=== PATIENT | male | born 1960 | race Caucasian/White ===

== ENCOUNTER 2024-05-25 06:06 | Day surgery (SDC) | payer OTHER ==
[~2024-05-25] VITALS: Ht 172.7 cm; Wt 64.0 kg
[2024-05-25] VITALS (239 sets, daily range): BP systolic 79–173; BP diastolic 44–118
--- NOTE | 2024-05-25 07:00 | NUR ---
Arrival & Pre-treatment Patient arrived to the [facility] suite, identification and demographics confirmed. Patient to room 8, AAO, ambulatory, vitals obtained, ID/allergy/fall bands placed, changed into hospital gown, MELI hose, and non-slip socks. Procedure and timeline explained for treatment and discharge. All questions answered and the patient presents no concerns at this time.
[2024-05-25] MEDS ORDERED: diazePAM 5 MG/TAB PO PRN ×2 (07:30→08:30)
[2024-05-25] MEDS ORDERED: LACTATED RINGER'S 1,000 ML IV PRN ×3 (07:30→19:00)
[2024-05-25] MEDS ORDERED: PANTOPRAZOLE SODIUM Sesquihydr 40 MG/TAB PO PRN (07:30)
[2024-05-25] MEDS ORDERED: CYANOCOBALAMIN 500 MCG/TAB ( B12) PO PRN (07:30)
[2024-05-25] MEDS ORDERED: FAMOTIDINE 20 MG/TAB PO PRN (07:30)
[2024-05-25] MEDS ORDERED: cloNIDine HCL 0.1 MG/TAB PO PRN (07:30)
[2024-05-25] MEDS ORDERED: SCOPOLAMINE 1.5 MG DIS TD PRN (07:30)
[2024-05-25] MEDS ORDERED: ALBUTEROL SULFATE 2.5 MG VIAL IN PRN (07:30)
--- NOTE | 2024-05-25 07:45 | NUR ---
Dr. Fuentes telephoned with patient intake information including usage, dose, last dose/time taken and initial vital signs. Patient history and allergies reviewed with MD. Orders received for 10 mg PO Valium and 0.1 mg PO Clonidine now. Will reassess per protocol in 1.5 hours and update MD with assessment and vitals. Patient medicated per MD orders. In addition to Clonidine and Valium, patient received 1000 mcg B12 PO, 20 mg Pepcid PO, and Scopolamine TD patch. Medication indication and education provided prior to administration
[2024-05-25] MEDS ORDERED: ASCORBIC ACID 4,000 MG in SODIUM CHLORIDE 0.9% 1,000 ML IV SCH (08:00)
[2024-05-25 08:38] LABS: BASO% 0.4 % (0-3); EOS% 2.4 % (0-8); HEMATOCRIT 46.6 % (39.0-50.0); HEMOGLOBIN 15.2 g/dl (14.0-18.0); IMMATURE GRANULOCYTES 0.4 % (0.0-5.0); LYMPH% 23.4 % (15-41); MEAN CELL VOLUME 97.5 fL CALC (80.0-100.0); MEAN CORPUSCULAR HGB 31.8 pG CALC (26.0-32.0); MEAN CORPUSCULAR HGB CONC 32.6 g/dL CAL (32.0-36.0); MONO% 7.5 % (2-13); NEUT# 4.94 thou/uL (1.82-7.42); NEUT% 65.9 % (42-76); RED BLOOD COUNT 4.78 mill/uL (4.70-6.10); RED CELL DISTRI WIDTH 13.4 % (11.5-15.5)
[2024-05-25] MEDS ORDERED: LIDOCAINE HCL 1% (10MG/ML) 100 MG/10 ML MDV IV PRN (09:00)
[2024-05-25] MEDS ORDERED: cloNIDine HYDROCHLORIDE 100 MCG/ML 10 ML INJ IV PRN (09:00)
[2024-05-25] MEDS ORDERED: DiphenhydrAMINE HCL 50 MG/ML SDV IV PRN (09:00)
[2024-05-25] MEDS ORDERED: MIDAZOLAM HCL 2 MG/2 ML VIAL IV PRN (09:00)
[2024-05-25] MEDS ORDERED: SUCCINYLCHOLINE CHLORIDE 20 MG/ML 10ML VIAL IV PRN (09:00)
[2024-05-25] MEDS ORDERED: OCTREOTIDE ACETATE 100 MCG/VIAL SDV SC PRN (09:00)
[2024-05-25] MEDS ORDERED: diazePAM 5 MG/TAB VT PRN (09:00)
[2024-05-25] MEDS ORDERED: NALTREXONE HCL 50 MG/TAB VT PRN (09:00)
[2024-05-25] MEDS ORDERED: DEXAMETHASONE SODIUM PHOSPHATE PF 10 MG/ML SDV IV PRN ×2 (09:00→19:00)
[2024-05-25] MEDS ORDERED: THIAMINE HCL 100 MG/ML 2ML VIAL IV PRN (09:00)
[2024-05-25] MEDS ORDERED: ONDANSETRON HCl 4 MG/2 ML SDV IV PRN ×3 (09:00→19:00)
[2024-05-25] MEDS ORDERED: STERILE WATER FOR IRRIGATION 1,000 ML BTL IR PRN (09:00)
[2024-05-25] MEDS ORDERED: cloNIDine HCL 0.1 MG/TAB VT PRN (09:00)
[2024-05-25] MEDS ORDERED: ROCURONIUM BROMIDE 10 MG/ML 5ML VIAL IV PRN (09:00)
[2024-05-25] MEDS ORDERED: LIDOCAINE HCL 1% (10MG/ML) 100 MG/10 ML MDV VT PRN ×2 (09:00)
[2024-05-25] MEDS ORDERED: MAGNESIUM SULFATE HEPTAHYDRATE 100 ML IV PRN (09:00)
[2024-05-25] MEDS ORDERED: PROPOFOL 10 MG/ML 100ML VIAL IV PRN (09:00)
[2024-05-25] MEDS ORDERED: PROPOFOL 100 ML IV PRN (09:00)
[2024-05-25] MEDS ORDERED: TESTOST CYP200 MG/ML IM (09:24)
[2024-05-25 09:43] LABS: ALBUMIN 3.9 g/dL (3.2-5.0); BILIRUBIN, TOTAL 0.6 mg/dL (0.2-1.3); CREATININE 0.9 mg/dL (0.7-1.3); POTASSIUM 4.2 mmol/l (3.5-5.1); TOTAL PROTEIN 6.5 g/dL (6.3-8.2)
--- NOTE | 2024-05-25 09:47 | NUR ---
Patient resting comfortably in bed. Easily aroused, maintains focus, and drifts back to sleep. No signs of active withdrawal or distress noted at this time. Continuous SPO2, rhythm, and respiratory monitoring initiated. IVF @ 250 mL/HR, room air, VSS.
[2024-05-25] MEDS ORDERED: POTASSIUM CHLORIDE 10 MEQ/50 ML BAG IV PRN (11:05)
--- NOTE | 2024-05-25 11:05 | NUR ---
Induction Note Patient to [facility] procedure room. Time out performed at 1105. Patient placed on monitors, Brissa hugger, bilateral wrist restraints applied for ET tube protection. Versed 5mg given IV push at 1140. Tourniquet applied to RIGHT arm Lidocaine 100mg given at 1142 IV push followed by Rocoronium 10mg at 1143 IV push and held for 90 seconds. Propofol bolus of 120mg given at 1145 IV push. Succinylcholine 80mg given IV push at 1146. Smooth intubation with 7.5 ETT. Positive CO2. Positive Auscultation for air exchange. Patient placed on ventilator for spontaneous ventilation. Placed on Propofol IV drip at 1147. OG inserted. Positive air on auscultation. Positive gastric content. Stomach washed at this time.
--- NOTE | 2024-05-25 12:00 | NUR ---
OG close note Stomach washed at this time. Naltrexone 50 mg with Clonidine 0.3 mg via OG tube. OG will be clamped for 45 minutes.
--- NOTE | 2024-05-25 12:45 | NUR ---
OG open note OG open at this time. Gastric content draining into drainage bag. OG to drain for 45 minutes. Propofol will be titrated down based on patient.
--- NOTE | 2024-05-25 13:30 | NUR ---
OG close note Stomach washed at this time. Naltrexone 50 mg with Clonidine 0.2 mg via OG tube. OG will be clamped for 45 minutes.
--- NOTE | 2024-05-25 15:00 | NUR ---
OG close note Stomach washed at this time. Naltrexone 50 mg with Clonidine 0.1 mg via OG tube. OG will be clamped for 45 minutes.
--- NOTE | 2024-05-25 16:30 | NUR ---
WAITING TIME NO CLOSE. SPOKE WITH DR. GARCIA AND NO ADDITIONAL MEDICATIONS ORDERED. PATIENT NEEDS MORE TIME.
[2024-05-25] MEDS ORDERED: CLONIDINE0.1 MG PO (16:52)
[2024-05-25] MEDS ORDERED: NALTREXONE50 MG PO (16:52)
[2024-05-25] MEDS ORDERED: KLONOPIN2 MG PO (16:52)
--- NOTE | 2024-05-25 17:15 | NUR ---
OG close note Stomach washed at this time. Naltrexone 12.5 mg with Clonidine 0.1 mg via OG tube. OG will be clamped for 30 minutes.
--- NOTE | 2024-05-25 17:45 | NUR ---
OG open note OG open at this time. Gastric content draining into drainage bag. OG to drain. Propofol will be titrated down based on patient.
--- NOTE | 2024-05-25 18:15 | NUR ---
Extubation note Closing medications given Benadryl 50mg IV push, Decadron 10mg IV push,Magnesium 4 grams IV, Zofran 8mg IV push, Octreotide 100mcg SC. Stomach washed out prior to extubation. Suctioned gastric content. OG removed. Patient extubated. Propofol Discontinued. Wrist restraints removed. Brissa hugger Removed. See ANR Moderate sedate recovery record for further notes and assessment.
[2024-05-25] MEDS ORDERED: ACETAMINOPHEN 500 MG TAB PO PRN (19:00)
[2024-05-25] MEDS ORDERED: PROMETHAZINE HCL 25 MG in SODIUM CHLORIDE 0.9% 50 ML IV PRN (19:00)
[2024-05-25] MEDS ORDERED: ACETAMINOPHEN 1,000 MG/100 ML VIAL IV PRN (19:00)
[2024-05-25] MEDS ORDERED: PROMETHAZINE HCL 12.5 MG in SODIUM CHLORIDE 0.9% 50 ML IV PRN (19:00)
[2024-05-25] MEDS ORDERED: LORazepam 2 MG/ML IV PRN ×2 (19:00)
[2024-05-25] MEDS ORDERED: KETOROLAC TROMETHAMINE 30 MG/ML SDV IV PRN (19:00)
[2024-05-25] MEDS ORDERED: HALOPERIDOL LACTATE 5 MG/ML SDV IV PRN (19:00)
--- NOTE | 2024-05-25 19:00 | NUR ---
TRANSER NOTE Patient transferred to medical-surgical unit. Report given to nurse at bedside. Head to toe assessment, treatment, medications, I/O, IV access reviewed with RN. All questions answered. IVF to continue at 100 ml/hr, NC @ 4L, no adventitious breath sounds. Safety precautions in place, bed locked and in lowest position, call light in reach. Handoff of care at the time this note.
--- NOTE | 2024-05-25 19:01 | NUR ---
Carmelo patients significant other contacted with patient update.
--- NOTE | 2024-05-25 19:47 | NUR ---
RECEIVED REPORT FROM ANR NURSE. PT TRANSFERRED TO [facility] VIA BED. PT IS SLEEPING AT THIS TIME WITH EYE MASK ON AND NASAL CANNULA IN PLACE ON 2L O2. BREATH SOUNDS CLEAR AND RESPIRATIONS ARE EVEN AND UNLABORED. IVF RUNNING PER EMAR, IV SITES APPEAR HEALTHY AND INTACT. VSS. NO S/S OF DISTRESS. BED ALARM ON AND SAFETY PRECAUTIONS IN PLACE.
[2024-05-25] MEDS ORDERED: PATIENT' OWN MED CONTROLLED 1 EA DOSE IV PRN (21:00)
[2024-05-25] MEDS ORDERED: cloNIDine HCL 0.1 MG/TAB PO SCH (23:00)
[2024-05-25] MEDS ORDERED: clonazePAM 1 MG/TAB PO PRN (23:00)
[2024-05-26 03:47] VITALS: BP 115/65
[2024-05-26] MEDS ORDERED: NALTREXONE HCL 50 MG/TAB PO SCH (04:00)
[2024-05-26] MEDS ORDERED: clonazePAM 1 MG/TAB PO PRN ×2 (04:00→08:00)
[2024-05-26] MEDS ORDERED: cloNIDine HCL 0.1 MG/TAB PO PRN (04:00)
--- NOTE | 2024-05-26 04:10 | NUR ---
ADMINSITERED SCHEDULED MEDS PER EMAR. PT TOLERATED WELL. PT HAS BEEN ABLE TO VOICE NEED TO USE BATHROOM, AMBULATES WITH X1 ASSIST AND CANE. VOIDS W/O DIFFICULTY. PT LAYING IN BED SUPINE AT THIS TIME, RESTING COMFORTABLY. VSS. NO S/S OF DISTRESS. IVF RUNNING PER EMAR. BED ALARM ON AND SAFETY PRECAUTIONS IN PLACE.
[2024-05-26 05:06] LABS: HEMATOCRIT 45.5 % (39.0-50.0); HEMOGLOBIN 15.4 g/dl (14.0-18.0); IMMATURE GRANULOCYTES 0.4 % (0.0-5.0); LYMPH% 7.7 % (15-41); MEAN CELL VOLUME 96.6 fL CALC (80.0-100.0); MEAN CORPUSCULAR HGB 32.7 pG CALC (26.0-32.0); MEAN CORPUSCULAR HGB CONC 33.8 g/dL CAL (32.0-36.0); MONO% 2.1 % (2-13); NEUT# 6.3 thou/uL (1.82-7.42); NEUT% 89.8 % (42-76); RED BLOOD COUNT 4.71 mill/uL (4.70-6.10); RED CELL DISTRI WIDTH 12.9 % (11.5-15.5)
[2024-05-26 05:17] LABS: ALBUMIN 3.8 g/dL (3.2-5.0); BILIRUBIN, TOTAL 0.7 mg/dL (0.2-1.3); MAGNESIUM 2.4 mg/dL (1.6-2.3); POTASSIUM 4.3 mmol/l (3.5-5.1); TOTAL PROTEIN 6.3 g/dL (6.3-8.2)
[2024-05-26 05:22] LABS: CREATININE 0.9 mg/dL (0.7-1.3)
[2024-05-26] MEDS ORDERED: ACETAMINOPHEN 325 MG/TAB PO SCH (08:00)
[2024-05-26] MEDS ORDERED: cloNIDine HCL 0.1 MG/TAB PO SCH (08:00)
[2024-05-26] MEDS ORDERED: PANTOPRAZOLE SODIUM Sesquihydr 40 MG/TAB PO SCH (08:00)
--- NOTE | 2024-05-26 08:00 | NUR ---
PATIENT A/O X2; ROOM AIR; BREATHING UNBLABOED AND EVEN; DENIED ANY PAIN; DENIED ANY N/D/V AT THIS TIME; NO S.S OF DISTRESS AT THIS TIME; TOLERATED HIS MEDICATIONS WITH NO PROBLEM; LABS WITHIN RANGE FOR PROGRAM; ENCOURAGED PATIENT TO TRY TO EAT SOME BREAKFAST; IV SITE CLEAN AND INTACT RUNNING WITH LR @100; NO COMPLAINTS; CALL LIGHT WITHIN REACH, ASSESSMENT COMPLETED; BED IN LOWEST POSTION;SAFETY MEASURES IN PLACE; PERSONAL ITEMS IN ANR LOCKER; TALKED TO PROVIDER ABOUT PATIENT STATUS
[2024-05-26 08:09] VITALS: BP 119/75
[2024-05-26] MEDS ORDERED: MAGNESIUM OXIDE 400 MG/TAB PO PRN (09:00)
[2024-05-26] MEDS ORDERED: ACETAMINOPHEN 500 MG TAB PO PRN (09:00)
[2024-05-26] MEDS ORDERED: Cholecalciferol 2,000 UNIT/TAB PO PRN (09:00)
--- NOTE | 2024-05-26 12:40 | NUR ---
PATIENT RESTING IN BED; ROOM AIR; BREATHING UNLABORED AND EVEN; DENIED ANY PAIN; DENIED ANY N/D/V AT THIS TIME; NO S.SO OF DISTRESS; IV SITE CLEAN AND INTACT RUNNING WITH LR @100; NO COMPLAINTS; CALL LIGHT WITHIN REACH; BED IN LOWEST POSTION
--- NOTE | 2024-05-26 13:42 | NUR ---
PATIENT IN SHOWER AT [facility]
--- NOTE | 2024-05-26 15:35 | NUR ---
IV SITE REMOVED AND PATIENT TOLERATED DISCHARGE MEDICATIONS
== END 2024-05-26 16:44 | disposition home or self-care (01) | DRG 897 ==
LOC: ANR 06:06 → MS2 06:07 → ANR 07:00
PROVIDERS: ATTEND Anesthesiology
DX: F11.20 Opioid dependence, uncomplicated (principal)
CPT/HCPCS: J1100; J2354; J3475